=== PATIENT | male | born 1950 | race Hispanic/Latino ===

== ENCOUNTER 2017-07-13 01:20 | Inpatient (IN) | payer OTHER ==
[~2017-07-13] VITALS: Ht 162.6 cm; Wt 57.5 kg
[2017-07-13] MEDS ORDERED: DEXAMETHASONE SOD PHOSPHATE 4 MG/ML 1ML VIAL ONE (01:53)
[2017-07-13] MEDS ORDERED: METHYLPREDNISOLONE SOD SUCC 40MG/ML 1ML ONE (01:53)
[2017-07-13] MEDS ORDERED: ACETAMINOPHEN-CODEINE ELIXIR 5 ML UDCUP ONE (02:06)
[2017-07-13 02:09] LABS: BASOPHILS % (AUTO) 1.2 % (0.0-5.0); EOSINOPHILS % (AUTO) 3.6 % (0.0-8.0); HEMATOCRIT 31.4 % (42-54); LYMPHOCYTES % (AUTO) 16.3 % (21.0-51.0); MEAN CORPUSCULAR HEMOGLOBIN 32.6 pg (27.0-33.0); MONOCYTES % (AUTO) 5.5 % (3.0-13.0); NEUTROPHILS % (AUTO) 73.4 % (40.0-77.0); PLATELET COUNT (AUTO) 156 K/uL (130-400); RED BLOOD CELL COUNT(AUTO) 3.38 MIL/uL (4.50-6.20); RED CELL DISTRIBUTION WIDTH 13.8 % (11.0-15.5); WHITE BLOOD COUNT (AUTO) 7.5 K/uL (4.8-10.8)
[2017-07-13 02:17] LABS: CREATININE 7.1 mg/dL (0.5-1.5); POTASSIUM 4.4 mmol/L (3.5-5.1)
[2017-07-13 02:21] LABS: ALBUMIN 3.6 g/dL (3.5-5.0); BILIRUBIN,TOTAL 0.3 mg/dL (0.2-1.0); TOTAL PROTEIN, SERUM 7.9 g/dL (6.0-8.3)
[2017-07-13] MEDS ORDERED: LEVOFLOXACIN 500 MG/D5W 100 ML 100 ML ONE (03:34)
[2017-07-13 03:37] LABS: INR 0.93 (0.85-1.15); PARTIAL THROMBOPLASTIN TIME 27.4 SEC (26.3-35.5); PROTHROMBIN TIME 9.8 SEC (9.6-11.6)
[2017-07-13] MEDS ORDERED: MORPHINE SULFATE 2 MG/ML 1ML SYG IVP PRN (05:30)
[2017-07-13] MEDS ORDERED: ONDANSETRON HCL MDV 20ML 2 MG/ML VIAL IVP PRN (05:30)
[2017-07-13] MEDS ORDERED: ACETAMINOPHEN 325 MG TAB PO PRN (05:30)
[2017-07-13] MEDS ORDERED: GLUCAGON 1MG KIT 1 MG ML IM PRN (05:30)
[2017-07-13] MEDS ORDERED: DEXTROSE 50%-WATER 50 ML DISP.SYRIN IV PRN (05:30)
[2017-07-13] MEDS ORDERED: METHYLPREDNISOLONE SOD SUCC 40MG/ML 1ML IVP SCH (05:45)
[2017-07-13] MEDS ORDERED: ACETAMINOPHEN-CODEINE ELIXIR 5 ML UDCUP PO PRN (05:45)
[2017-07-13] MEDS: HEPARIN SODIUM 5000UNIT/ML 1ML VIAL SQ SCH ×3 (06:00→21:21)
[2017-07-13] MEDS ORDERED: LEVOFLOXACIN 500 MG/D5W 100 ML 100 ML IV SCH (06:00)
[2017-07-13 06:23] VITALS: BP 148/83
[2017-07-13] MEDS: IPRATROPIUM/ALBUTEROL SULFATE 3 ML SOLUTION IH SCH ×5 (06:51→22:09)
[2017-07-13] MEDS ORDERED: SODIUM CHLORIDE 0.9% 10 ML VIAL IVP PRN (07:00)
[2017-07-13] MEDS: INSULIN R PO SS1 SQ SCH ×4 (07:30→21:20)
[2017-07-13 07:51] VITALS: BP 140/65
[2017-07-13] MEDS: FAMOTIDINE 20MG TAB 20 MG TAB PO SCH (09:02)
[2017-07-13] MEDS ORDERED: METO25TA6 PO ×2 (11:45)
[2017-07-13] MEDS ORDERED: AEC81 PO (11:45)
[2017-07-13] MEDS ORDERED: FURO40TA5 PO (11:45)
[2017-07-13] MEDS ORDERED: AMLO10TA2 PO (11:45)
[2017-07-13] MEDS ORDERED: CILO100T PO (11:45)
[2017-07-13] MEDS ORDERED: SIMV10TA6 PO (11:45)
[2017-07-13] MEDS ORDERED: GLIP5TAB11 PO (11:45)
[2017-07-13] MEDS ORDERED: FOLI1TAB85 PO (11:45)
[2017-07-13] MEDS ORDERED: ERGO500014 PO (11:45)
[2017-07-13 11:50] VITALS: BP 157/79
[2017-07-13] MEDS: METHYLPREDNISOLONE SOD SUCC 40MG/ML 1ML IVP SCH ×2 (11:52→17:12)
[2017-07-13] MEDS: FUROSEMIDE 10 MG/ML 4ML VIAL IV SCH (14:38)
[2017-07-13 16:07] VITALS: BP 142/71
[2017-07-13] MEDS: CILOSTAZOL 100 MG TAB PO SCH (17:10)
[2017-07-13 19:38] VITALS: BP 148/76
[2017-07-13] MEDS: ATORVASTATIN CALCIUM 10 MG TABLET PO SCH (20:10)
[2017-07-13] MEDS: METOPROLOL TARTRATE 25 MG TAB PO SCH (20:11)
[2017-07-13 23:53] VITALS: BP 149/81
[2017-07-14] VITALS (7 sets, daily range): BP systolic 136–156; BP diastolic 64–76
[2017-07-14] MEDS: METHYLPREDNISOLONE SOD SUCC 40MG/ML 1ML IVP SCH ×3 (00:20→12:00)
[2017-07-14] MEDS: FUROSEMIDE 10 MG/ML 4ML VIAL IV SCH ×2 (00:20→17:01)
[2017-07-14] MEDS: IPRATROPIUM/ALBUTEROL SULFATE 3 ML SOLUTION IH SCH ×6 (01:58→22:31)
[2017-07-14] MEDS ORDERED: LEVOFLOXACIN 750 MG/D5W 150 ML 150 ML IV SCH (03:30)
[2017-07-14 04:27] LABS: BASOPHILS % (AUTO) 0.1 % (0.0-5.0); HEMATOCRIT 29.9 % (42-54); LYMPHOCYTES % (AUTO) 5.9 % (21.0-51.0); MEAN CORPUSCULAR HEMOGLOBIN 32.3 pg (27.0-33.0); MEAN CORPUSCULAR VOLUME 92.4 fL (79-99); PLATELET COUNT (AUTO) 141 K/uL (130-400); RED BLOOD CELL COUNT(AUTO) 3.23 MIL/uL (4.50-6.20); RED CELL DISTRIBUTION WIDTH 13.6 % (11.0-15.5); WHITE BLOOD COUNT (AUTO) 8.9 K/uL (4.8-10.8)
[2017-07-14 04:34] LABS: CREATININE 7.6 mg/dL (0.5-1.5); POTASSIUM 4.4 mmol/L (3.5-5.1)
[2017-07-14] MEDS: HEPARIN SODIUM 5000UNIT/ML 1ML VIAL SQ SCH ×3 (06:09→20:41)
[2017-07-14] MEDS: INSULIN R PO SS1 SQ SCH ×4 (06:21→20:28)
[2017-07-14] MEDS: ERGOCALCIFEROL (VITAMIN D2) 50,000 UNIT CAPSULE PO SCH (07:27)
[2017-07-14] MEDS: CILOSTAZOL 100 MG TAB PO SCH ×2 (08:01→16:37)
[2017-07-14] MEDS ORDERED: FUROSEMIDE 40 MG TABLET PO SCH (09:00)
[2017-07-14] MEDS: GLIPIZIDE 5 MG TABLET PO SCH (09:27)
[2017-07-14] MEDS: FAMOTIDINE 20MG TAB 20 MG TAB PO SCH (09:27)
[2017-07-14] MEDS: VITAMIN B COMPLEX 1 CAPSULE PO SCH (09:27)
[2017-07-14] MEDS: AMLODIPINE BESYLATE 5 MG TAB PO SCH (09:27)
[2017-07-14] MEDS: ASPIRIN 81 MG EC TAB PO SCH (09:28)
[2017-07-14] MEDS: METOPROLOL TARTRATE 25 MG TAB PO SCH ×2 (09:28→20:28)
[2017-07-14] MEDS: ATORVASTATIN CALCIUM 10 MG TABLET PO SCH (20:28)
[2017-07-15] VITALS (16 sets, daily range): BP systolic 119–141; BP diastolic 63–74
[2017-07-15] MEDS: IPRATROPIUM/ALBUTEROL SULFATE 3 ML SOLUTION IH SCH ×6 (02:06→21:41)
[2017-07-15 04:06] LABS: HEMATOCRIT 25.7 % (42-54); MEAN CORPUSCULAR HGB CONC 33.4 g/dL (32.0-36.0); MEAN CORPUSCULAR VOLUME 92.8 fL (79-99); PLATELET COUNT (AUTO) 135 K/uL (130-400); RED BLOOD CELL COUNT(AUTO) 2.77 MIL/uL (4.50-6.20); RED CELL DISTRIBUTION WIDTH 14.1 % (11.0-15.5); WHITE BLOOD COUNT (AUTO) 14.8 K/uL (4.8-10.8)
[2017-07-15 04:13] LABS: INR 0.96 (0.85-1.15); PARTIAL THROMBOPLASTIN TIME 26.7 SEC (26.3-35.5); PROTHROMBIN TIME 10.1 SEC (9.6-11.6)
[2017-07-15 04:18] LABS: BAND NEUTROPHILS % (MANUAL) 8 % (0-2); LYMPHOCYTES % (MANUAL) 7 % (22-44); MAN.DIFF COMMENT-IMPRESSION MANUAL DIFFERENTIAL; MONOCYTES % (MANUAL) 1 % (2-9); PHOSPHORUS 6.1 mg/dL (2.5-4.9); PLATELET MORPHOLOGY COMMENT SLIGHTLY DECREASED; POTASSIUM 4.3 mmol/L (3.5-5.1); SEGMENTED NEUTROPHILS % 84 % (40-70)
[2017-07-15 04:32] LABS: CREATININE 8.6 mg/dL (0.5-1.5)
[2017-07-15] MEDS: INSULIN R PO SS1 SQ SCH ×4 (06:24→20:42)
[2017-07-15] MEDS: FUROSEMIDE 10 MG/ML 4ML VIAL IV SCH (06:25)
[2017-07-15] MEDS: CILOSTAZOL 100 MG TAB PO SCH ×2 (06:25→17:16)
[2017-07-15] MEDS: HEPARIN SODIUM 5000UNIT/ML 1ML VIAL SQ SCH ×3 (06:37→17:18)
[2017-07-15] MEDS: LEVOFLOXACIN 250 MG/D5W 50ML 50 ML IVPB SCH (09:05)
[2017-07-15] MEDS: ERGOCALCIFEROL (VITAMIN D2) 50,000 UNIT CAPSULE PO SCH (09:05)
[2017-07-15] MEDS: VITAMIN B COMPLEX 1 CAPSULE PO SCH (09:05)
[2017-07-15] MEDS: GLIPIZIDE 5 MG TABLET PO SCH (09:05)
[2017-07-15] MEDS: AMLODIPINE BESYLATE 5 MG TAB PO SCH (09:06)
[2017-07-15] MEDS: PREDNISONE 10 MG TABLET PO SCH (09:06)
[2017-07-15] MEDS: ASPIRIN 81 MG EC TAB PO SCH (09:06)
[2017-07-15] MEDS: METOPROLOL TARTRATE 25 MG TAB PO SCH ×2 (09:07→20:31)
[2017-07-15] MEDS: FAMOTIDINE 20MG TAB 20 MG TAB PO SCH (09:07)
[2017-07-15] MEDS ORDERED: LIDOCAINE HCL 1% MDV 50ML VIAL ONE (10:18)
[2017-07-15] MEDS ORDERED: SODIUM CHLORIDE 0.9% 1000ML 1,000 ML IV ONE (14:37)
[2017-07-15] MEDS: ATORVASTATIN CALCIUM 10 MG TABLET PO SCH (20:31)
[2017-07-16] MEDS: IPRATROPIUM/ALBUTEROL SULFATE 3 ML SOLUTION IH SCH ×6 (01:25→22:00)
[2017-07-16 03:41] VITALS: BP 147/57
[2017-07-16] MEDS: INSULIN R PO SS1 SQ SCH ×4 (05:50→20:36)
[2017-07-16] MEDS: HEPARIN SODIUM 5000UNIT/ML 1ML VIAL SQ SCH ×3 (05:50→20:16)
[2017-07-16] MEDS: CILOSTAZOL 100 MG TAB PO SCH ×2 (05:50→17:26)
[2017-07-16 08:07] VITALS: BP 138/75
[2017-07-16 09:22] LABS: TOTAL PROTEIN, SERUM 7.4 g/dL (6.0-8.3)
[2017-07-16 12:00] VITALS: BP 128/70
[2017-07-16] MEDS: VITAMIN B COMPLEX 1 CAPSULE PO SCH (12:26)
[2017-07-16] MEDS: FAMOTIDINE 20MG TAB 20 MG TAB PO SCH (12:27)
[2017-07-16] MEDS: PREDNISONE 10 MG TABLET PO SCH (12:27)
[2017-07-16] MEDS: METOPROLOL TARTRATE 25 MG TAB PO SCH ×2 (12:28→20:15)
[2017-07-16] MEDS: GLIPIZIDE 5 MG TABLET PO SCH (12:28)
[2017-07-16] MEDS: ASPIRIN 81 MG EC TAB PO SCH (12:28)
[2017-07-16] MEDS: LISINOPRIL 20 MG TABLET PO SCH (12:29)
[2017-07-16 17:49] VITALS: BP 114/56
[2017-07-16 19:32] VITALS: BP 115/62
[2017-07-16] MEDS: ATORVASTATIN CALCIUM 10 MG TABLET PO SCH (20:15)
[2017-07-16 23:35] VITALS: BP 103/53
[2017-07-17] MEDS: IPRATROPIUM/ALBUTEROL SULFATE 3 ML SOLUTION IH SCH ×6 (01:40→22:00)
[2017-07-17 04:01] VITALS: BP 115/57
[2017-07-17 04:31] LABS: HEMATOCRIT 23.6 % (42-54); MEAN CORPUSCULAR HEMOGLOBIN 31.6 pg (27.0-33.0); MEAN CORPUSCULAR HGB CONC 34.3 g/dL (32.0-36.0); MEAN CORPUSCULAR VOLUME 92.2 fL (79-99); PLATELET COUNT (AUTO) 126 K/uL (130-400); RED BLOOD CELL COUNT(AUTO) 2.55 MIL/uL (4.50-6.20); RED CELL DISTRIBUTION WIDTH 13.9 % (11.0-15.5); WHITE BLOOD COUNT (AUTO) 8.6 K/uL (4.8-10.8)
[2017-07-17 05:01] LABS: POTASSIUM 3.6 mmol/L (3.5-5.1)
[2017-07-17] MEDS: CILOSTAZOL 100 MG TAB PO SCH ×2 (05:27→17:13)
[2017-07-17] MEDS: HEPARIN SODIUM 5000UNIT/ML 1ML VIAL SQ SCH ×3 (05:28→21:20)
[2017-07-17] MEDS: INSULIN R PO SS1 SQ SCH ×4 (05:41→21:17)
[2017-07-17] MEDS: ASPIRIN 81 MG EC TAB PO SCH (07:33)
[2017-07-17] MEDS: GLIPIZIDE 5 MG TABLET PO SCH (07:33)
[2017-07-17] MEDS: METOPROLOL TARTRATE 25 MG TAB PO SCH (07:34)
[2017-07-17] MEDS: FAMOTIDINE 20MG TAB 20 MG TAB PO SCH (07:34)
[2017-07-17] MEDS: VITAMIN B COMPLEX 1 CAPSULE PO SCH (07:34)
[2017-07-17] MEDS: LISINOPRIL 20 MG TABLET PO SCH (07:34)
[2017-07-17] MEDS: LEVOFLOXACIN 250 MG/D5W 50ML 50 ML IVPB SCH (07:34)
[2017-07-17] MEDS: PREDNISONE 10 MG TABLET PO SCH (07:34)
[2017-07-17 07:45] VITALS: BP 125/66
[2017-07-17 11:30] VITALS: BP 127/69
[2017-07-17 11:31] LABS: HEMATOCRIT 27.5 % (42-54)
[2017-07-17 11:39] LABS: HEMOGLOBIN A1C 6.4 % (4.0-6.0)
[2017-07-17 11:42] LABS: CREATININE 6.4 mg/dL (0.5-1.5)
[2017-07-17 12:12] LABS: % IRON SATURATION 20.3 % (30-44)
[2017-07-17] MEDS ORDERED: SODIUM CHLORIDE 0.9% 1000ML 1,000 ML IV PRN (14:45)
[2017-07-17] MEDS ORDERED: 0.9% SODIUM CHLORIDE 250 ML IV BAG IV PRN (14:45)
[2017-07-17] MEDS ORDERED: HEPARIN SODIUM 5000UNIT/ML 1ML VIAL IJ PRN (14:45)
[2017-07-17 16:30] VITALS: BP 138/71
[2017-07-17 19:19] VITALS: BP 141/79
[2017-07-17] MEDS: METOPROLOL TARTRATE 50 MG TAB PO SCH (20:42)
[2017-07-17] MEDS: ATORVASTATIN CALCIUM 10 MG TABLET PO SCH (20:42)
[2017-07-17 23:01] VITALS: BP 128/70
[2017-07-18] MEDS: IPRATROPIUM/ALBUTEROL SULFATE 3 ML SOLUTION IH SCH (02:00)
[2017-07-18 03:24] VITALS: BP 131/73
[2017-07-18 04:55] LABS: CREATININE 4.6 mg/dL (0.5-1.5); POTASSIUM 3.6 mmol/L (3.5-5.1)
[2017-07-18] MEDS: HEPARIN SODIUM 5000UNIT/ML 1ML VIAL SQ SCH ×3 (05:50→21:48)
[2017-07-18] MEDS ORDERED: IPRATROPIUM/ALBUTEROL SULFATE 3 ML SOLUTION IH PRN (06:00)
[2017-07-18] MEDS: INSULIN R PO SS1 SQ SCH ×4 (06:25→21:48)
[2017-07-18] MEDS: CILOSTAZOL 100 MG TAB PO SCH ×2 (06:27→16:01)
[2017-07-18 07:30] VITALS: BP 152/84
[2017-07-18 08:19] LABS: HEPATITIS Bs ANTIGEN SCREEN P Negative (Negative)
[2017-07-18] MEDS: VITAMIN B COMPLEX 1 CAPSULE PO SCH (09:21)
[2017-07-18] MEDS: PREDNISONE 10 MG TABLET PO SCH (09:21)
[2017-07-18] MEDS: GLIPIZIDE 5 MG TABLET PO SCH (09:21)
[2017-07-18] MEDS: FAMOTIDINE 20MG TAB 20 MG TAB PO SCH (09:22)
[2017-07-18] MEDS: METOPROLOL TARTRATE 50 MG TAB PO SCH ×2 (09:22→20:44)
[2017-07-18] MEDS: LISINOPRIL 20 MG TABLET PO SCH (09:22)
[2017-07-18] MEDS: ASPIRIN 81 MG EC TAB PO SCH (09:22)
[2017-07-18 12:00] VITALS: BP 124/68
[2017-07-18 16:30] VITALS: BP 138/81
[2017-07-18 19:13] VITALS: BP 145/80
[2017-07-18] MEDS: ATORVASTATIN CALCIUM 10 MG TABLET PO SCH (20:44)
[2017-07-18] MEDS: INSULIN GLARGINE 100 UNITS/ML 10 ML VIAL SQ SCH (21:47)
[2017-07-18 23:23] VITALS: BP 128/78
[2017-07-19] VITALS (15 sets, daily range): BP systolic 135–159; BP diastolic 70–86
[2017-07-19] MEDS: IPRATROPIUM/ALBUTEROL SULFATE 3 ML SOLUTION IH SCH ×3 (02:00→10:00)
[2017-07-19 04:34] LABS: HEMATOCRIT 25.8 % (42-54); MEAN CORPUSCULAR HEMOGLOBIN 31.3 pg (27.0-33.0); MEAN CORPUSCULAR HGB CONC 33.8 g/dL (32.0-36.0); MEAN CORPUSCULAR VOLUME 92.7 fL (79-99); PLATELET COUNT (AUTO) 176 K/uL (130-400); RED BLOOD CELL COUNT(AUTO) 2.78 MIL/uL (4.50-6.20); RED CELL DISTRIBUTION WIDTH 13.5 % (11.0-15.5); WHITE BLOOD COUNT (AUTO) 9.7 K/uL (4.8-10.8)
[2017-07-19 04:49] LABS: CREATININE 5.6 mg/dL (0.5-1.5); POTASSIUM 3.7 mmol/L (3.5-5.1)
[2017-07-19 04:51] LABS: INR 0.93 (0.85-1.15); PARTIAL THROMBOPLASTIN TIME 24.4 SEC (26.3-35.5); PROTHROMBIN TIME 9.6 SEC (9.6-11.6)
[2017-07-19] MEDS: HEPARIN SODIUM 5000UNIT/ML 1ML VIAL SQ SCH ×3 (05:02→22:00)
[2017-07-19] MEDS: CILOSTAZOL 100 MG TAB PO SCH ×2 (05:02→16:59)
[2017-07-19] MEDS: INSULIN R PO SS1 SQ SCH ×4 (06:02→21:02)
[2017-07-19] MEDS: METOPROLOL TARTRATE 50 MG TAB PO SCH ×2 (09:00→21:00)
[2017-07-19] MEDS: ASPIRIN 81 MG EC TAB PO SCH (09:00)
[2017-07-19] MEDS: VITAMIN B COMPLEX 1 CAPSULE PO SCH (09:00)
[2017-07-19] MEDS: PREDNISONE 10 MG TABLET PO SCH (09:00)
[2017-07-19] MEDS: LISINOPRIL 20 MG TABLET PO SCH ×2 (09:00→17:01)
[2017-07-19] MEDS: GLIPIZIDE 5 MG TABLET PO SCH (09:00)
[2017-07-19] MEDS: FAMOTIDINE 20MG TAB 20 MG TAB PO SCH (09:48)
[2017-07-19] MEDS: LEVOFLOXACIN 250 MG/D5W 50ML 50 ML IVPB SCH (09:49)
[2017-07-19] MEDS ORDERED: MIDAZOLAM HCL 1 MG/ML 2ML VIAL ONE (11:20)
[2017-07-19] MEDS ORDERED: FENTANYL CITRATE PF 50 MCG/1 ML 2ML VIAL ONE (11:21)
[2017-07-19] MEDS ORDERED: PAPAVERINE HCL 30 MG/ML 2ML VIAL ONE (11:25)
[2017-07-19] MEDS ORDERED: NEOMY SULF/POLYMYXIN B SULFATE 1 ML AMPUL IR ONE (11:25)
[2017-07-19] MEDS ORDERED: PROPOFOL 10 MG/ML 20ML VIAL IV ONE (11:47)
[2017-07-19] MEDS: ATORVASTATIN CALCIUM 10 MG TABLET PO SCH (21:01)
[2017-07-19] MEDS: INSULIN GLARGINE 100 UNITS/ML 10 ML VIAL SQ SCH (21:04)
[2017-07-20 03:41] VITALS: BP 149/76
[2017-07-20 05:03] LABS: HEMATOCRIT 25.5 % (42-54); MEAN CORPUSCULAR HGB CONC 36.5 g/dL (32.0-36.0); MEAN CORPUSCULAR VOLUME 93.1 fL (79-99); PLATELET COUNT (AUTO) 178 K/uL (130-400); RED BLOOD CELL COUNT(AUTO) 2.74 MIL/uL (4.50-6.20); RED CELL DISTRIBUTION WIDTH 13.6 % (11.0-15.5); WHITE BLOOD COUNT (AUTO) 8.7 K/uL (4.8-10.8)
[2017-07-20 05:05] LABS: CREATININE 6.2 mg/dL (0.5-1.5); POTASSIUM 3.8 mmol/L (3.5-5.1)
[2017-07-20] MEDS: CILOSTAZOL 100 MG TAB PO SCH ×2 (05:57→17:11)
[2017-07-20] MEDS: HEPARIN SODIUM 5000UNIT/ML 1ML VIAL SQ SCH ×2 (05:57→14:00)
[2017-07-20] MEDS: INSULIN R PO SS1 SQ SCH ×3 (06:02→16:30)
[2017-07-20] MEDS ORDERED: HEPARIN SODIUM 5000UNIT/ML 1ML VIAL IJ PRN (07:30)
[2017-07-20] MEDS ORDERED: SODIUM CHLORIDE 0.9% 1000ML 1,000 ML IV PRN (07:30)
[2017-07-20] MEDS ORDERED: 0.9% SODIUM CHLORIDE 250 ML IV BAG IV PRN (07:30)
[2017-07-20] MEDS ORDERED: ALBUMIN (HUMAN) 25% 100 ML IV PRN (07:30)
[2017-07-20 07:34] VITALS: BP 108/64
[2017-07-20] MEDS: VITAMIN B COMPLEX 1 CAPSULE PO SCH ×2 (09:00→12:06)
[2017-07-20] MEDS: PREDNISONE 10 MG TABLET PO SCH ×2 (09:00→12:06)
[2017-07-20] MEDS: METOPROLOL TARTRATE 50 MG TAB PO SCH ×2 (09:00→12:06)
[2017-07-20] MEDS: ASPIRIN 81 MG EC TAB PO SCH ×2 (09:00→12:06)
[2017-07-20] MEDS: GLIPIZIDE 5 MG TABLET PO SCH ×2 (09:00→12:06)
[2017-07-20] MEDS: LISINOPRIL 20 MG TABLET PO SCH ×2 (09:00→12:06)
[2017-07-20] MEDS: FAMOTIDINE 20MG TAB 20 MG TAB PO SCH ×2 (09:00→12:06)
[2017-07-20 11:50] VITALS: BP 145/66
[2017-07-20] MEDS ORDERED: INSLAN SQ (15:57)
[2017-07-20] MEDS ORDERED: LISI-613 PO (15:57)
[2017-07-20] MEDS ORDERED: METO50 PO (15:57)
[2017-07-20] MEDS ORDERED: LEVO250T2 PO (15:57)
== END 2017-07-20 17:25 | disposition home or self-care (01) | DRG 264 ==
LOC: EDH 01:20 → EDHIP 04:51 → OBSVTOIN 04:51 → 2DH 05:56
PROVIDERS: ADMIT Internal Medicine Nephrology; ATTEND Internal Medicine Nephrology
PROC: 5A1D70Z Performance of Urinary Filtration, Intermittent, Less than 6 Hours Per Day (ICD-10-PCS; principal; 2017-07-16)
PROC: 5A1D70Z Performance of Urinary Filtration, Intermittent, Less than 6 Hours Per Day (ICD-10-PCS; 2017-07-16)
PROC: 5A1D70Z Performance of Urinary Filtration, Intermittent, Less than 6 Hours Per Day (ICD-10-PCS; 2017-07-17)
PROC: 0JH63XZ Insertion of Tunneled Vascular Access Device into Chest Subcutaneous Tissue and Fascia, Percutaneous Approach (ICD-10-PCS; 2017-07-17)
PROC: 02H633Z Insertion of Infusion Device into Right Atrium, Percutaneous Approach (ICD-10-PCS; 2017-07-17)
PROC: B244ZZZ Ultrasonography of Right Heart (ICD-10-PCS; 2017-07-17)
PROC: 5A1D70Z Performance of Urinary Filtration, Intermittent, Less than 6 Hours Per Day (ICD-10-PCS; 2017-07-19)
PROC: 031C0ZF Bypass Left Radial Artery to Lower Arm Vein, Open Approach (ICD-10-PCS; 2017-07-19 11:30)
DX: I13.2 Hypertensive heart and chronic kidney disease with heart failure and with stage 5 chronic kidney disease, or end stage renal disease (principal); J96.01 Acute respiratory failure with hypoxia; N17.9 Acute kidney failure, unspecified; J18.9 Pneumonia, unspecified organism; N18.6 End stage renal disease; E11.22 Type 2 diabetes mellitus with diabetic chronic kidney disease; I50.33 Acute on chronic diastolic (congestive) heart failure; E11.65 Type 2 diabetes mellitus with hyperglycemia; D64.9 Anemia, unspecified; J45.909 Unspecified asthma, uncomplicated; Z82.49 Family history of ischemic heart disease and other diseases of the circulatory system; Z83.3 Family history of diabetes mellitus; Z91.19 Patient's noncompliance with other medical treatment and regimen; Z99.2 Dependence on renal dialysis; Z98.42 Cataract extraction status, left eye
CPT/HCPCS: 36415; 36558; 71045; 71046; 71250; 76604; 76770; 77001; 80048; 80053; 80061; 80339; 82040; 82565; 82728; 82948; 83036; 83540; 83550; 83605; 83615; 84100; 84155; 84484; 84520; 85014; 85018; 85025; 85027; 85610; 85730; 86701; 86704; 86706; 87340; 87390; 87520; 87804; 90935; 93005; 93306; 93971; 94640; 94664; C1750; J1100; J1644; J1815; J1940; J1956; J2250; J2440; J2704; J2920; J3010; J3490; J7030; J7070; J7512

== ENCOUNTER 2017-08-17 17:46 | Emergency (ER) | payer OTHER ==
[~2017-08-17 17:46] MED LIST: AEC81 PO; AMLO10TA2 PO; CILO100T PO; ERGO500014 PO; FOLI1TAB85 PO; GLIP5TAB11 PO; INSLAN SQ; LEVO250T2 PO; LISI-613 PO; METO50 PO; SIMV10TA6 PO
== END 2017-08-17 19:47 | disposition home or self-care (01) ==
LOC: EDH 17:46
DX: S51.812A Laceration without foreign body of left forearm, initial encounter (principal); E11.9 Type 2 diabetes mellitus without complications; X58.XXXA Exposure to other specified factors, initial encounter; Y93.89 Activity, other specified; Y92.89 Other specified places as the place of occurrence of the external cause; Y99.8 Other external cause status
CPT/HCPCS: 99282

== ENCOUNTER → 2018-06-02 | Outpatient (CLI) | payer OTHER ==
[~2018-06-02] MED LIST changes: -AMLO10TA2 PO; +AMLO10TA7 PO
== END | disposition home or self-care (01) ==
LOC: RAH 09:16
PROVIDERS: ATTEND Internal Medicine
DX: I70.0 Atherosclerosis of aorta (principal); Z87.891 Personal history of nicotine dependence
CPT/HCPCS: 76775

== ENCOUNTER → 2018-07-18 | Outpatient (CLI) | payer OTHER, SELFPAY | END | disposition home or self-care (01) | LOC: OIH 10:33 | PROVIDERS: ATTEND Internal Medicine Cardiovascular Disease | DX: Z13.6 Encounter for screening for cardiovascular disorders (principal) | CPT/HCPCS: 75571 ==

== ENCOUNTER 2018-10-27 05:42 | Inpatient (IN) | payer OTHER ==
[2018-10-24 11:45] VITALS: BP 154/53
[2018-10-24 12:01] LABS: BASOPHILS % (AUTO) 0.8 % (0.0-5.0); EOSINOPHILS % (AUTO) 3.2 % (0.0-8.0); HEMATOCRIT 35.4 % (42-54); LYMPHOCYTES % (AUTO) 25.1 % (21.0-51.0); MEAN CORPUSCULAR HEMOGLOBIN 33.5 pg (27.0-33.0); MEAN CORPUSCULAR HGB CONC 33.2 g/dL (32.0-36.0); MEAN CORPUSCULAR VOLUME 100.8 fL (79-99); NEUTROPHILS % (AUTO) 63.9 % (40.0-77.0); PLATELET COUNT (AUTO) 110 K/uL (130-400); RED BLOOD CELL COUNT(AUTO) 3.51 MIL/uL (4.50-6.20); RED CELL DISTRIBUTION WIDTH 15.2 % (11.0-15.5); WHITE BLOOD COUNT (AUTO) 5.3 K/uL (4.8-10.8)
[2018-10-24 12:14] LABS: APPEARANCE,URINE Clear (CLEAR); BILIRUBIN,URINE Small (NEGATIVE); COLOR,URINE Dark Yellow (YELLOW); GLUCOSE, URINE (UA) Negative (NEGATIVE); KETONES,URINE Trace mg/dL (NEGATIVE); LEUKOCYTE ESTERASE ,URINE Trace (NEGATIVE); NITRATE,URINE Negative (NEGATIVE); OCCULT BLOOD,URINE Negative (NEGATIVE); PH,URINE 7.5 (5.0-8.0); PROTEIN,URINE 300 mg/dL (NEGATIVE)
[2018-10-24 12:16] LABS: CREATININE 4.5 mg/dL (0.5-1.5); POTASSIUM 4.6 mmol/L (3.5-5.1)
[2018-10-24 12:19] LABS: INR 0.97 (0.85-1.15); PROTHROMBIN TIME 10.2 SEC (9.6-11.6)
[2018-10-24 12:23] LABS: BACTERIA,URINE Rare /HPF (None Seen); HYALINE CASTS, URINE 0-1 /LPF (0-1 /LPF); MUCUS,URINE Few LPF (None Seen); RBC,URINE None Seen /HPF (0-1); SQUAMOUS EPITHELIAL CELL,UR Rare /HPF (0-2); WBC,URINE 0-1 /HPF (0-1)
--- NOTE | 2018-10-24 16:21 | NUR ---
LABS INFORMED NIKA DENNIS OF ABNORMAL PLATELET LEVEL. NO ORDERS RECEIVED. PROCEED WITH PLANNED PROCEDURE
[~2018-10-27] VITALS: Ht 160 cm; Wt 53.9 kg
[2018-10-27] VITALS (38 sets, daily range): BP systolic 98–177; BP diastolic 54–83
[~2018-10-27 05:42] MED LIST changes: -AEC81 PO; -AMLO10TA7 PO; -CILO100T PO; -ERGO500014 PO; +FOLIC ACID PO; -GLIP5TAB11 PO; -LEVO250T2 PO; -LISI-613 PO; +LISI10TA7 PO; -METO50 PO; +OMEP-50 PO
[2018-10-27] MEDS ORDERED: SODIUM CHLORIDE 0.9% 1000ML 1,000 ML IV ONE ×2 (06:42→12:31)
--- NOTE | 2018-10-27 07:13 | NUR ---
PROCEDURE PT TAKEN TO HEAD PUMPER FOR PROCEDURE . FAMILY AT BEDSIDE.
[2018-10-27] MEDS ORDERED: NITROGLYCERIN 5 MG/ML 10 ML VIAL IV ONE (07:18)
[2018-10-27] MEDS ORDERED: SODIUM BICARB 50MEQ 50ML VIAL ONE ×2 (07:18→13:27)
[2018-10-27] MEDS ORDERED: LIDOCAINE HCL 2% 20ML ONE (07:18)
[2018-10-27] MEDS ORDERED: HEPARIN SODIUM 1000UNIT/ML 10ML VIAL ONE ×2 (07:18→13:27)
[2018-10-27] MEDS ORDERED: IOHEXOL-350 50ML VIAL IV ONE (07:18)
[2018-10-27] MEDS ORDERED: IOHEXOL 350 MG/ML 100ML INFUS..BTL IV ONE (07:18)
[2018-10-27] MEDS ORDERED: CALC667C10 PO (07:24)
[2018-10-27] MEDS ORDERED: MIDAZOLAM HCL 1 MG/ML 2ML VIAL ONE (07:26)
[2018-10-27] MEDS ORDERED: MEPERIDINE-PF 25 MG/ML SYG ONE (07:26)
[2018-10-27] MEDS ORDERED: DEXTROSE 50%-WATER 50 ML DISP.SYRIN IV PRN (08:15)
[2018-10-27] MEDS ORDERED: GLUCAGON 1MG KIT 1 MG ML IM PRN ×2 (08:15→15:30)
[2018-10-27] MEDS: FOLIC ACID/VITAMIN B COMP W-C 1 MG CAP/TAB PO SCH (09:00)
[2018-10-27] MEDS: LISINOPRIL 10 MG TABLET PO SCH (09:00)
[2018-10-27] MEDS: FOLIC ACID 1 MG TABLET PO SCH (09:00)
[2018-10-27] MEDS: PANTOPRAZOLE SODIUM 40 MG TABLET.DR PO SCH (09:00)
[2018-10-27 09:36] LABS: HEMATOCRIT 33.9 % (42-54); MEAN CORPUSCULAR HEMOGLOBIN 34.3 pg (27.0-33.0); MEAN CORPUSCULAR HGB CONC 33.8 g/dL (32.0-36.0); MEAN CORPUSCULAR VOLUME 101.2 fL (79-99); PLATELET COUNT (AUTO) 77 K/uL (130-400); RED BLOOD CELL COUNT(AUTO) 3.35 MIL/uL (4.50-6.20); RED CELL DISTRIBUTION WIDTH 14.6 % (11.0-15.5); WHITE BLOOD COUNT (AUTO) 5.3 K/uL (4.8-10.8)
[2018-10-27 09:48] LABS: INR 0.95 (0.85-1.15); PARTIAL THROMBOPLASTIN TIME 28.5 SEC (26.3-35.5)
[2018-10-27 09:51] LABS: CREATININE 5.6 mg/dL (0.5-1.5); POTASSIUM 4.5 mmol/L (3.5-5.1)
[2018-10-27 10:05] LABS: HEMOGLOBIN A1C 6.6 % (4.0-6.0)
[2018-10-27 10:29] LABS: B-TYPE NATRIURETIC PEPTIDE 123 pg/mL (0-100)
[2018-10-27] MEDS ORDERED: CEFAZOLIN SODIUM 1 GM VIAL IVP PRN (11:00)
[2018-10-27] MEDS ORDERED: INSULIN HUMULIN R 100 UNIT/ML 3ML SQ SCH (11:30)
--- NOTE | 2018-10-27 11:45 | NUR ---
DR. ANN IN TO SEE PATIENT AND SPEAK WITH HIM ABOUT HEART CATH RESULTS AND PLANNED CABG.
[2018-10-27] MEDS: CALCIUM ACETATE 667 MG CAPSULE PO SCH ×2 (12:00→17:00)
--- NOTE | 2018-10-27 12:19 | NUR ---
PATIENT TAKEN TO OR HOLDING FOR PROCEDURE.
[2018-10-27] MEDS ORDERED: EPINEPHRINE 1 MG/ML 30ML VIAL IJ ONE (12:27)
[2018-10-27] MEDS ORDERED: NITROGLYCERIN 50 MG/D5% WATER 1 BOT ONE (12:27)
[2018-10-27] MEDS ORDERED: AMINOCAPROIC ACID 250 MG/ML 20 ML VIAL IV ONE (13:27)
[2018-10-27] MEDS ORDERED: NOREPINEPHRINE BITARTRATE 1 MG/1 ML ML IV ONE (13:27)
[2018-10-27] MEDS ORDERED: EPINEPHRINE 1 MG/ML AMPULE ONE (13:27)
[2018-10-27] MEDS ORDERED: LIDOCAINE PF 2% 5ML ABBOJECT ONE (13:27)
[2018-10-27] MEDS ORDERED: ESMOLOL HCL 10 MG/ML 10 ML VIAL ONE (13:27)
[2018-10-27] MEDS ORDERED: PROTAMINE SULFATE 10 MG/ML 25ML VIAL IV ONE (13:27)
[2018-10-27] MEDS ORDERED: FENTANYL CITRATE PF 50 MCG/1 ML 20ML VIAL IJ ONE (13:28)
[2018-10-27] MEDS ORDERED: ROCURONIUM 10MG/1ML SYR 10 MG/ML ML ONE (13:28)
[2018-10-27] MEDS ORDERED: MIDAZOLAM HCL 1 MG/ML 5ML VIAL ONE (13:28)
[2018-10-27] MEDS ORDERED: AMIODARONE HCL 50 MG/ML 3 ML VIAL ONE ×2 (13:28→15:33)
[2018-10-27] MEDS ORDERED: PROPOFOL 10 MG/ML 20ML VIAL IV ONE (13:28)
[2018-10-27] MEDS ORDERED: ETOMIDATE 2 MG/ML 10 ML VIAL ONE (13:29)
--- NOTE | 2018-10-27 14:03 | NUR ---
PT RECEIVED FROM MASTER AUTOMOTIVE TECHNICIAN, POST HEART CATH. PT IS TO BE SEEN BY DR. ANN FOR POSSIBLE CABG TODAY. BED REST x 4 HRS. RIGHT GROIN NOTED SOFT, NO HEMATOMA, PULSES PALPATED. POC DISCUSSED WITH PT AND SPOUSE. TELE WITH SB 57. WILL CONT TO MONITOR CLOSELY. Addendum: 10/27/18 at 1410 by JENNA ROMERO RN RN TIME ADJUSTMENT FOR NOTE 5599
[2018-10-27 14:09] LABS: ABG BASE EXCESS -3.2 mmol/L (-2.0-3.0); ABG HCO3 17.8 mmol/L (21.0-28.0); ABG PCO2 22 mmHg (35-48)
[2018-10-27] MEDS ORDERED: MAGNESIUM SULFATE 1 GM/2 ML VIAL ONE (14:19)
[2018-10-27] MEDS ORDERED: BACITRACIN 50,000 UNIT VIAL ONE (14:24)
[2018-10-27] MEDS ORDERED: PAPAVERINE HCL 30 MG/ML 2ML VIAL ONE (14:24)
[2018-10-27] MEDS ORDERED: HEPARIN SODIUM 1000UNIT/ML 10ML VIAL IV ONE (14:47)
[2018-10-27] MEDS ORDERED: ALBUMIN (HUMAN) 25% 50 ML IV ONE (14:47)
[2018-10-27 15:10] LABS: ABG BASE EXCESS 0.4 mmol/L (-2.0-3.0); ABG HCO3 23.6 mmol/L (21.0-28.0); ABG OXYGEN SATURATION 99.2 % (95.0-99.0); ABG PCO2 33 mmHg (35-48)
[2018-10-27] MEDS ORDERED: SODIUM CHLORIDE 0.9% 500ML 500 ML IV SCH (15:19)
[2018-10-27] MEDS ORDERED: SODIUM CHLORIDE 0.9% 10 ML VIAL IVP PRN (15:30)
[2018-10-27] MEDS ORDERED: POTASSIUM CHLORIDE 20MEQ/100ML 100 ML IV PRN (15:30)
[2018-10-27] MEDS ORDERED: ACETAMINOPHEN 650 MG SUPPOSITORY RC PRN (15:30)
[2018-10-27] MEDS ORDERED: SODIUM CHLORIDE 0.9% 250 ML IV PRN (15:30)
[2018-10-27] MEDS ORDERED: TRAMADOL HCL 50 MG TABLET PO PRN ×2 (15:30)
[2018-10-27] MEDS ORDERED: POTASSIUM PHOS 15 mMOL+NS250ML 250 ML IV PRN (15:30)
[2018-10-27] MEDS ORDERED: MORPHINE SULFATE 4 MG/1ML SYG IV PRN (15:30)
[2018-10-27] MEDS ORDERED: AMINOCAPROIC ACID 15,000 MG in SODIUM CHLORIDE 0.9% 250 ML IV SCH (15:30)
[2018-10-27] MEDS ORDERED: INSULIN REGULAR, HUMAN 3ML 100 UNIT in SODIUM CHLORIDE 0.9% 99 ML IV SCH ×2 (15:30)
[2018-10-27] MEDS ORDERED: ACETAMINOPHEN 325 MG TAB PO PRN ×2 (15:30)
[2018-10-27] MEDS ORDERED: CALCIUM GLUCONATE 1 GM in SODIUM CHLORIDE 0.9% 50 ML IV PRN (15:30)
[2018-10-27] MEDS ORDERED: EPINEPHRINE 8 MG in DEXTROSE 5%-WATER 250 ML IV PRN (15:30)
[2018-10-27] MEDS ORDERED: MAGNESIUM 2GM PREMIX 50ML 50 ML IV PRN (15:30)
[2018-10-27] MEDS ORDERED: NITROGLYCERIN 50 MG/D5% WATER 250 BOT IV SCH (15:30)
[2018-10-27] MEDS ORDERED: MORPHINE SULFATE 2 MG/ML 1ML SYG IV PRN (15:30)
[2018-10-27] MEDS ORDERED: SODIUM BICARB 50MEQ 50ML VIAL IV PRN (15:30)
[2018-10-27] MEDS ORDERED: ALBUMIN (HUMAN) 5% 250 ML IV PRN (15:30)
[2018-10-27] MEDS ORDERED: PROPOFOL 1000 MG/100 ML 100 ML IV PRN (15:30)
[2018-10-27] MEDS ORDERED: NOREPINEPHRINE 4MG/NS 250ML 250 ML IV PRN (15:30)
[2018-10-27] MEDS ORDERED: POTASSIUM CHLORIDE 20MEQ/100ML 300 ML IV ONE (15:53)
[2018-10-27 15:55] LABS: ABG BASE EXCESS 1.4 mmol/L (-2.0-3.0); ABG HCO3 24.3 mmol/L (21.0-28.0); ABG OXYGEN SATURATION 98.8 % (95.0-99.0); ABG PCO2 33 mmHg (35-48)
[2018-10-27 16:44] LABS: ABG BASE EXCESS -1.1 mmol/L (-2.0-3.0); ABG HCO3 22.6 mmol/L (21.0-28.0); ABG OXYGEN SATURATION 97.8 % (95.0-99.0); ABG PCO2 34 mmHg (35-48)
--- NOTE | 2018-10-27 17:15 | NUR ---
POST OP Received post op - orally intubated/sedated - not yet responsive to verbal or tactile stimulation. Sedation not infusing. SR on tele - VS/hemodynamics as recorded. Received pt on IV levophed @1mcg/min, epinephrine gtt @0.1mcg/kg/min, amicar @50ml/hr. Skin is cool, dry. Strong apical heart tones. Sternal drsg is clean, dry. CT's x3 in place - R/L pleural, MS - sanguineous drainage. CT's to 20cm suction. No evidence of air leak/crepitus. Abd flat - absent bowel sounds. OGT placement verified per routine - placed to LIS. F/C patent. CODY bandage/surgical drsg to LLE dry, intact. Left IJ CVP line in use. Right brachial arterial line in use. PIV to right forearm patent. Insulin gtt initiated per protocol. Assessment completed/recorded. Levophed gtt off @1719. Epinephrine gtt off @1728.
[2018-10-27 17:42] LABS: ABG BASE EXCESS -0.4 mmol/L (-2.0-3.0); ABG HCO3 24.1 mmol/L (21.0-28.0); ABG OXYGEN SATURATION 97.1 % (95.0-99.0); ABG PCO2 39 mmHg (35-48)
--- NOTE | 2018-10-27 17:50 | NUR ---
FAMILY UPDATE Pt's family members in to see pt - updated. Questions addressed. CVR phone number provided to pt's spouse.
[2018-10-27 17:51] LABS: HEMATOCRIT 28.2 % (42-54); MEAN CORPUSCULAR HEMOGLOBIN 34.3 pg (27.0-33.0); MEAN CORPUSCULAR HGB CONC 33.8 g/dL (32.0-36.0); MEAN CORPUSCULAR VOLUME 101.4 fL (79-99); PLATELET COUNT (AUTO) 62 K/uL (130-400); RED BLOOD CELL COUNT(AUTO) 2.78 MIL/uL (4.50-6.20); RED CELL DISTRIBUTION WIDTH 14.6 % (11.0-15.5)
[2018-10-27] MEDS: SODIUM CHLORIDE 0.9% 1000ML 1,000 ML IV SCH (17:58)
[2018-10-27 18:07] LABS: INR 1.05 (0.85-1.15); PARTIAL THROMBOPLASTIN TIME 23.5 SEC (26.3-35.5)
[2018-10-27 18:45] LABS: MAGNESIUM 2.7 mg/dL (1.80-2.40); PHOSPHORUS 3.8 mg/dL (2.5-4.9); POTASSIUM 4.4 mmol/L (3.5-5.1)
--- NOTE | 2018-10-27 18:50 | NUR ---
SHIFT REPORT Care of pt endorsed to 7P RN.
--- NOTE | 2018-10-27 19:15 | NUR ---
PM note Orally intubated and sedated. Endotracheal cardiac output monitoring in place. Amicar @50ml/hr via Left internal jugular central line, all ports patent. Sternal dressings clean & dry. Chest tubes x3 to 20cm of suction, right & left pleural, mediastinal with sanguineous output with no air leak. Orogastric tube to low intermittent suction, minimal clear content noted. Nj catheter to gravity. Tito wrap bandage to left donor leg. Arterial line to right brachial leveled and zeroed. New 20gauge IV catheter started to right hand, 20 Gauge to right forearm patent. Insulin drip per protocol. No hematoma noted to left groin, pulses palpable. Sinus mechanism in 80s.
--- NOTE | 2018-10-27 19:23 | NUR ---
MD Notification Dr. Gutierrez notified about patient's Dialysis therapy due tomorrow as scheduled from home. Order received to contact scraper burrer for Dialysis orders, and not to extubate too late tonight, will carry out.
--- NOTE | 2018-10-27 19:35 | NUR ---
MD CALL Dr. Rei marrufo and called back. New orders received to obtain consent for Hemodialysis to be done tomorrow am, will carry out.
--- NOTE | 2018-10-27 19:41 | NUR ---
CONSENT Call made to Mrs. Divya Davis (spouse), telephone consent obtained for Hemodialysis and verified by JUNE Hebert at bedside.
--- NOTE | 2018-10-27 19:45 | NUR ---
DIALYSIS NURSE Call made to dialysis nurse Shawna as per extrusion supervisor schedule, notified about new orders for Hemodialysis in am, consent in chart.
[2018-10-27] MEDS ORDERED: ATORVASTATIN CALCIUM 40 MG TABLET PO SCH (21:00)
[2018-10-27] MEDS ORDERED: SIMVASTATIN 10 MG TABLET PO SCH (21:00)
[2018-10-27] MEDS: INSULIN GLARGINE 100 UNITS/ML 10 ML VIAL SQ SCH (21:00)
[2018-10-27] MEDS: SODIUM CHLORIDE 0.9% 10 ML VIAL IVP SCH ×2 (21:15→23:36)
[2018-10-27] MEDS: CEFAZOLIN SODIUM 1 GM VIAL IV SCH (21:16)
[2018-10-28] VITALS (62 sets, daily range): BP systolic 63–181; BP diastolic 33–76
--- NOTE | 2018-10-28 | NUR ---
STATUS Remains orally intubated, sedation infusing at low dose. Opens eyes and randomly moves all extremities, reassurance provided.
[2018-10-28] MEDS: ONDANSETRON HCL 4 MG/2 ML VIAL IV PRN ×2 (02:55→17:21)
[2018-10-28 03:43] LABS: ABG BASE EXCESS -2.3 mmol/L (-2.0-3.0); ABG HCO3 22.3 mmol/L (21.0-28.0); ABG OXYGEN SATURATION 99.2 % (95.0-99.0); ABG PCO2 38 mmHg (35-48)
[2018-10-28] MEDS: CEFAZOLIN SODIUM 1 GM VIAL IV SCH ×2 (03:49→11:33)
--- NOTE | 2018-10-28 03:50 | NUR ---
EXTUBATION Sedation turned off at 0300. Pt fully awake following commands. Able to sustain head-lift, strong bilateral hand manager lean. Moves all extremities. Blood gases done. Negative inspiratory force of -28cmHg with vital capacity 1,500cc. Extubated and placed on Aerosol mask at 40% Fio2, tolerating well. Instructed not to speak for next 2 hours, nods understanding.
[2018-10-28 04:05] LABS: HEMATOCRIT 28.7 % (42-54); MEAN CORPUSCULAR HEMOGLOBIN 33.9 pg (27.0-33.0); MEAN CORPUSCULAR HGB CONC 33.7 g/dL (32.0-36.0); MEAN CORPUSCULAR VOLUME 100.6 fL (79-99); PLATELET COUNT (AUTO) 77 K/uL (130-400); RED BLOOD CELL COUNT(AUTO) 2.85 MIL/uL (4.50-6.20); RED CELL DISTRIBUTION WIDTH 14.7 % (11.0-15.5); WHITE BLOOD COUNT (AUTO) 9.5 K/uL (4.8-10.8)
[2018-10-28 04:06] LABS: PARTIAL THROMBOPLASTIN TIME 24.7 SEC (26.3-35.5); PROTHROMBIN TIME 10.5 SEC (9.6-11.6)
[2018-10-28 04:18] LABS: CREATININE 5.9 mg/dL (0.5-1.5); MAGNESIUM 2.5 mg/dL (1.80-2.40); POTASSIUM 4.1 mmol/L (3.5-5.1)
--- NOTE | 2018-10-28 05:00 | NUR ---
TRANSFER Transferred to room 206, in no distress. Aerosol mask removed and placed on nasal cannula at 2lit/min. Side rails up. Remains in bed awaiting dialysis treatment.
[2018-10-28 05:30] LABS: ABG BASE EXCESS 0.6 mmol/L (-2.0-3.0); ABG HCO3 25.3 mmol/L (21.0-28.0); ABG OXYGEN SATURATION 99.3 % (95.0-99.0); ABG PCO2 41 mmHg (35-48)
[2018-10-28] MEDS: DEXTROSE 50%-WATER 50 ML DISP.SYRIN IV PRN (07:35)
[2018-10-28] MEDS: CALCIUM ACETATE 667 MG CAPSULE PO SCH ×2 (08:00→11:20)
--- NOTE | 2018-10-28 08:05 | NUR ---
DIALYSIS IN PROGRESS- I HAVE STARTED EPI DRIP AT 0.02 MCG/KG/MIN TO SUPPORT BP WHILE HAVING HD.
[2018-10-28] MEDS: SODIUM CHLORIDE 0.9% 10 ML VIAL IVP SCH ×2 (08:15→15:41)
--- NOTE | 2018-10-28 08:49 | NUR ---
LEVOPHED STARTED AT 2MCG/MIN TO SUPPORT BP DURING HD. ABP WAS 70/50
[2018-10-28] MEDS: LISINOPRIL 10 MG TABLET PO SCH (09:00)
[2018-10-28] MEDS: FAMOTIDINE/PF 20 MG/2 ML VIAL IV SCH (09:00)
[2018-10-28] MEDS: METOPROLOL TARTRATE 25 MG TAB PO SCH ×2 (09:00→21:00)
[2018-10-28 09:08] LABS: % IRON SATURATION 10.7 % (30-44)
[2018-10-28] MEDS: FOLIC ACID 1 MG TABLET PO SCH (11:20)
[2018-10-28] MEDS: PANTOPRAZOLE SODIUM 40 MG TABLET.DR PO SCH (11:21)
[2018-10-28] MEDS: ASPIRIN 325MG EC TAB 325 MG TABLET.DR PO SCH (11:21)
[2018-10-28] MEDS: FOLIC ACID/VITAMIN B COMP W-C 1 MG CAP/TAB PO SCH (11:22)
--- NOTE | 2018-10-28 11:30 | NUR ---
PT HAS COMPLETED HIS DIALYSIS. ON LEVOPHED AND EPI DRIPS. OTHERWISE STABLE
[2018-10-28] MEDS: SODIUM CHLORIDE 0.9% 1000ML 1,000 ML IV SCH (11:34)
--- NOTE | 2018-10-28 14:43 | NUR ---
LOW BP- PT REPORTS TO ME THAT HE HAS HAD PROBLEMS WITH LOW BP AND HAS HAD TO STOP TAKING BLOOD PRESSURE MEDS. AT PRESENT TIME PT IS COMFORTABLE AND STABLE. LEVOPHED REMAINS ON AT 1MCG/MIN. EPI IS OFF. HAD 1 SMALL LOOSE BROWN BM.
--- NOTE | 2018-10-28 19:27 | NUR ---
HAND OF REPORT GIVEN TO ESTHER WATKINS
[2018-10-28] MEDS: ATORVASTATIN CALCIUM 20 MG TABLET PO SCH (21:30)
[2018-10-28] MEDS: INSULIN GLARGINE 100 UNITS/ML 10 ML VIAL SQ SCH (21:35)
[2018-10-29] VITALS (20 sets, daily range): BP systolic 93–144; BP diastolic 45–78
[2018-10-29] MEDS: SODIUM CHLORIDE 0.9% 10 ML VIAL IVP SCH ×3 (00:49→16:15)
[2018-10-29 05:28] LABS: MEAN CORPUSCULAR HEMOGLOBIN 34.3 pg (27.0-33.0); MEAN CORPUSCULAR HGB CONC 33.9 g/dL (32.0-36.0); MEAN CORPUSCULAR VOLUME 101.1 fL (79-99); PLATELET COUNT (AUTO) 62 K/uL (130-400); RED BLOOD CELL COUNT(AUTO) 2.67 MIL/uL (4.50-6.20); RED CELL DISTRIBUTION WIDTH 14.9 % (11.0-15.5); WHITE BLOOD COUNT (AUTO) 11.6 K/uL (4.8-10.8)
[2018-10-29 05:36] LABS: CREATININE 4.9 mg/dL (0.5-1.5); MAGNESIUM 2.1 mg/dL (1.80-2.40); PHOSPHORUS 2.8 mg/dL (2.5-4.9); POTASSIUM 5.1 mmol/L (3.5-5.1)
[2018-10-29 08:11] LABS: HEPATITIS A ANTIBODY IGM Negative (Negative); HEPATITIS B CORE IGM Negative (Negative); HEPATITIS Bs ANTIGEN SCREEN P Negative (Negative)
[2018-10-29] MEDS: PANTOPRAZOLE SODIUM 40 MG TABLET.DR PO SCH (08:41)
[2018-10-29] MEDS: FOLIC ACID/VITAMIN B COMP W-C 1 MG CAP/TAB PO SCH (08:43)
[2018-10-29] MEDS: LISINOPRIL 10 MG TABLET PO SCH (08:44)
[2018-10-29] MEDS: ASPIRIN 325MG EC TAB 325 MG TABLET.DR PO SCH (08:44)
[2018-10-29] MEDS: FAMOTIDINE/PF 20 MG/2 ML VIAL IV SCH (08:44)
[2018-10-29] MEDS: FOLIC ACID 1 MG TABLET PO SCH (08:44)
--- NOTE | 2018-10-29 08:45 | NUR ---
DC PLAN VISITED WITH PATIENT. PATIENT LIVES WITH SPOUSE. INDEPENDENT ABLE TO PERFORM ADL'S. PATIENT HAS NO SERVICES OR DME'S. FEELS SAFE TO RETURN HOME. Addendum: 10/29/18 at 0851 by ADIS DICKINSON RN CM Amended: Links added.
[2018-10-29] MEDS ORDERED: FAMOTIDINE 20MG TAB 20 MG TAB PO SCH (09:00)
--- NOTE | 2018-10-29 09:35 | NUR ---
DISCONTINUED PARMAR CATHETER INTACT AT THIS TIME, TOLERATED WELL
--- NOTE | 2018-10-29 09:45 | NUR ---
DISCONTINUED A LINE, CATHETER INTACT, TOLERATED WELL
--- NOTE | 2018-10-29 09:55 | NUR ---
DISCONTINUED RT IJ CORDIS, CATHETER INTACT, APPLIED PRESSURE TO SITE, COVERED WITH 4X4 GAUZE, AND SECURED WITH OPSITE.
--- NOTE | 2018-10-29 10:30 | NUR ---
DISCONTINUED CHEST TUBE X3, CATHETERS INTACT. ASSISTED PER JOHAN NGUYEN, PETROLEUM GAUZES APPLIED TO SITE, TOLERATED WELL.
--- NOTE | 2018-10-29 11:25 | NUR ---
REPORT GIVEN TO CLAUDIA MARTIN RN. TRANSFERRED TO ROOM 232, PCCU, VIA BED.
--- NOTE | 2018-10-29 11:40 | NUR ---
Patient recieved from ICU to room 232. Patient alert, awake and oriented. Dressing to Left IJ clean dry and intact. Mid sternal incision dressing clean dry and intact. IV patent and flushes well to Right hand and right forearm. Patient reoriented to room. bed to lowest position. Call light placed within reach Addendum: 10/29/18 at 1454 by CLAUDIA MARTIN RN RN Denies chest pain or SOB, respirations even and unlabored. Patient having small loose frequent stools. SCD's placed on patient.
[2018-10-29] MEDS: METOPROLOL TARTRATE 25 MG TAB PO SCH ×2 (11:51→21:28)
[2018-10-29] MEDS: DEXTROSE 50%-WATER 50 ML DISP.SYRIN IV PRN (11:51)
[2018-10-29] MEDS ORDERED: ENOXAPARIN SODIUM 30 MG/0.3 ML SQ SCH (13:00)
--- NOTE | 2018-10-29 13:10 | NUR ---
Agatha notified of platelet count 62. Hold lovenox. Continue with SCD and DEMARCO fu.
[2018-10-29] MEDS: INSULIN GLARGINE 100 UNITS/ML 10 ML VIAL SQ SCH (21:00)
[2018-10-29] MEDS: ATORVASTATIN CALCIUM 20 MG TABLET PO SCH (21:28)
[2018-10-30] VITALS (7 sets, daily range): BP systolic 97–136; BP diastolic 38–58
[2018-10-30] MEDS: SODIUM CHLORIDE 0.9% 10 ML VIAL IVP SCH ×3 (00:15→16:15)
[2018-10-30 03:46] LABS: HEMATOCRIT 27.2 % (42-54); MEAN CORPUSCULAR HEMOGLOBIN 34.1 pg (27.0-33.0); MEAN CORPUSCULAR HGB CONC 33.6 g/dL (32.0-36.0); MEAN CORPUSCULAR VOLUME 101.3 fL (79-99); PLATELET COUNT (AUTO) 61 K/uL (130-400); RED BLOOD CELL COUNT(AUTO) 2.68 MIL/uL (4.50-6.20); RED CELL DISTRIBUTION WIDTH 14.8 % (11.0-15.5); WHITE BLOOD COUNT (AUTO) 9.8 K/uL (4.8-10.8)
[2018-10-30 03:58] LABS: ALBUMIN 2.6 g/dL (3.5-5.0); BILIRUBIN,TOTAL 0.3 mg/dL (0.2-1.0); CREATININE 6.6 mg/dL (0.5-1.5); MAGNESIUM 2.4 mg/dL (1.80-2.40); POTASSIUM 4.5 mmol/L (3.5-5.1); TOTAL PROTEIN, SERUM 5.6 g/dL (6.0-8.3)
--- NOTE | 2018-10-30 05:55 | NUR ---
Patient noted to have brown pasty stools.
[2018-10-30] MEDS ORDERED: ENOXAPARIN SODIUM 30 MG/0.3 ML SQ SCH (09:00)
[2018-10-30] MEDS: FAMOTIDINE/PF 20 MG/2 ML VIAL IV SCH (09:00)
[2018-10-30] MEDS: FOLIC ACID/VITAMIN B COMP W-C 1 MG CAP/TAB PO SCH (10:30)
--- NOTE | 2018-10-30 10:30 | NUR ---
AM ASSESSMENT PT LAYING IN BED, RESTING. FAMILY @ BEDSIDE. A/O X 3. NO SOB. NO DISTRESS NOTED. DENIES CHEST PAIN OR DISCOMFORT. DENIES INCISIONAL PAIN. TELE: SR 80s. DENIES N/V AND/OR DIARRHEA. TOLERATED CLEAR LIQUID, NO NAUSEA EXPERIENCED. DIET TO BE ADVANCED FOR LUNCH. HD TTS. HD THIS AM, 0.2L REMOVED. TOLERATED WELL. LT AV-FISTULA, (+) BRUIT/(+) THRILL. LT ARM PRECAUTIONS IN PLACE. STERNAL INCISION DSG DRY & INTACT. NO DRAINAGE NOTED. STERNAL PRECAUTIONS REINFORCED. UP W/ASSISTANCE. INSTRUCTED TO CALL FOR ASSISTANCE. CALL DIANN W/IN REACH.
[2018-10-30] MEDS: ASPIRIN 325MG EC TAB 325 MG TABLET.DR PO SCH (10:31)
[2018-10-30] MEDS: PANTOPRAZOLE SODIUM 40 MG TABLET.DR PO SCH (10:31)
[2018-10-30] MEDS: FOLIC ACID 1 MG TABLET PO SCH (10:31)
[2018-10-30] MEDS: LISINOPRIL 10 MG TABLET PO SCH (10:31)
[2018-10-30] MEDS ORDERED: EPOETIN ALFA 10,000 UNIT/ML VIAL SQ SCH (17:00)
[2018-10-30] MEDS ORDERED: PHARMACY COMMUNICATION MISC SCH (17:45)
[2018-10-30] MEDS: ATORVASTATIN CALCIUM 20 MG TABLET PO SCH (20:41)
[2018-10-30] MEDS: INSULIN GLARGINE 100 UNITS/ML 10 ML VIAL SQ SCH (20:47)
--- NOTE | 2018-10-31 00:03 | NUR ---
Pt. resting in bed quietly,sleeping well,respirations even and nonlabored.Easily arousable.BP 97/54mmHg .Pt. denies any discomfort he said he feels okay at this time.Call light placed within reach.
[2018-10-31] MEDS: SODIUM CHLORIDE 0.9% 10 ML VIAL IVP SCH ×3 (00:15→16:15)
[2018-10-31 04:20] LABS: HEMATOCRIT 25.2 % (42-54); MEAN CORPUSCULAR HEMOGLOBIN 34.6 pg (27.0-33.0); MEAN CORPUSCULAR HGB CONC 33.8 g/dL (32.0-36.0); MEAN CORPUSCULAR VOLUME 102.2 fL (79-99); PLATELET COUNT (AUTO) 61 K/uL (130-400); RED BLOOD CELL COUNT(AUTO) 2.47 MIL/uL (4.50-6.20); RED CELL DISTRIBUTION WIDTH 14.2 % (11.0-15.5); WHITE BLOOD COUNT (AUTO) 7.1 K/uL (4.8-10.8)
[2018-10-31 04:24] VITALS: BP 141/63
[2018-10-31 04:30] LABS: CREATININE 4.8 mg/dL (0.5-1.5); POTASSIUM 3.4 mmol/L (3.5-5.1)
[2018-10-31 07:29] VITALS: BP 156/59
[2018-10-31] MEDS ORDERED: METOPROLOL TARTRATE 25 MG TAB PO SCH (09:00)
[2018-10-31] MEDS: ASPIRIN 325MG EC TAB 325 MG TABLET.DR PO SCH (09:24)
[2018-10-31] MEDS: FOLIC ACID/VITAMIN B COMP W-C 1 MG CAP/TAB PO SCH (09:24)
[2018-10-31] MEDS: PANTOPRAZOLE SODIUM 40 MG TABLET.DR PO SCH (09:24)
[2018-10-31] MEDS: FOLIC ACID 1 MG TABLET PO SCH (09:24)
[2018-10-31] MEDS: LISINOPRIL 10 MG TABLET PO SCH (09:24)
[2018-10-31 11:38] VITALS: BP 136/57
--- NOTE | 2018-10-31 12:46 | NUR ---
RD Notification Pt tolerating 75gm CC, Heart Healthy diet with no report of GI distress and PO intake at 100%. Rec to add Dialysis diet modifier secondary to Hx of ESRD on HD. Pt with no complaints at time of visit. RD provided Mediterranean diet education and encouraged to notify as questions or concern arise. Pt LBM 10/30/18. Pt monitored labs: K 3.4, BUN 38, Cr 4.8, GFR 13, Glu 108, Ca 7.5, Alb 2.6. RD to continue to monitor. Please notify RD as additional nutrition concerns arise. Thank you. Addendum: 10/31/18 at [address] RD Amended: Links added.
--- NOTE | 2018-10-31 12:54 | NUR ---
Diet Education JOSE provided Mediterranean diet education. JOSE reviewed reference materials and handouts with Pt. Pt with desire to review reference materials. Pt with no questions at time of teaching. Pt verbalized understanding. JOSE encouraged to notify as questions and concerns arise. Addendum: 10/31/18 at [address] RD Amended: Links added.
[2018-10-31 15:49] VITALS: BP 141/58
--- NOTE | 2018-10-31 18:05 | NUR ---
DISCHARGE INSTRUCTIONS/ INFORMATION GIVEN TO PATIENT AND SPOUSE. TEACH BACK METHOD USED TO EDUCATE PATIENT ON DIET, ACTIVITY RESTRICTIONS, IS USE, PHYSICAL ACTIVITY, STERNAL PRECAUTIONS, NEW MEDICATIONS PRESCRIBED, WOUND CARE,AND F/U APPOINTMENTS. NEW MEDS WERE CALLED IN TO PATIENT'S PREFERRED PHARMACY, [facility] RAINEY-SPOKE WITH JANETH. PIV REMOVED. TIP INTACT. TELE REMOVED AND RETURNED. ALL BELONGINGS WERE PACKED INCLUDING IS MACHINE. PATIENT WAS SAFELY WHEELED TO PRIVATE VEHICLE BY LENA METZ.
== END 2018-10-31 18:30 | disposition home or self-care (01) | DRG 233 ==
LOC: DAH 05:42 → DAHIP 05:43 → 2AH 08:38 → 2CV 13:51 → 2BH 10-28 05:07 → 2AH 10-29 11:26
PROVIDERS: ADMIT Internal Medicine Nephrology; ATTEND Internal Medicine Nephrology
PROC: 021209W Bypass Coronary Artery, Three Arteries from Aorta with Autologous Venous Tissue, Open Approach (ICD-10-PCS; 2018-10-27)
PROC: 06BQ4ZZ Excision of Left Saphenous Vein, Percutaneous Endoscopic Approach (ICD-10-PCS; 2018-10-27)
PROC: B2151ZZ Fluoroscopy of Left Heart using Low Osmolar Contrast (ICD-10-PCS; 2018-10-27)
PROC: 02100Z9 Bypass Coronary Artery, One Artery from Left Internal Mammary, Open Approach (ICD-10-PCS; principal; 2018-10-27 13:29)
PROC: B2111ZZ Fluoroscopy of Multiple Coronary Arteries using Low Osmolar Contrast (ICD-10-PCS; 2018-10-27 13:29)
PROC: 4A023N7 Measurement of Cardiac Sampling and Pressure, Left Heart, Percutaneous Approach (ICD-10-PCS; 2018-10-27 13:29)
PROC: 5A1D70Z Performance of Urinary Filtration, Intermittent, Less than 6 Hours Per Day (ICD-10-PCS; 2018-10-28)
PROC: 5A1D70Z Performance of Urinary Filtration, Intermittent, Less than 6 Hours Per Day (ICD-10-PCS; 2018-10-30)
DX: I25.10 Atherosclerotic heart disease of native coronary artery without angina pectoris (principal); N18.6 End stage renal disease; I12.0 Hypertensive chronic kidney disease with stage 5 chronic kidney disease or end stage renal disease; D62 Acute posthemorrhagic anemia; D63.8 Anemia in other chronic diseases classified elsewhere; E11.22 Type 2 diabetes mellitus with diabetic chronic kidney disease; D69.59 Other secondary thrombocytopenia; R00.1 Bradycardia, unspecified; E11.21 Type 2 diabetes mellitus with diabetic nephropathy; E11.51 Type 2 diabetes mellitus with diabetic peripheral angiopathy without gangrene; E78.5 Hyperlipidemia, unspecified; Z99.2 Dependence on renal dialysis; Z79.82 Long term (current) use of aspirin; Z79.899 Other long term (current) drug therapy; Z87.891 Personal history of nicotine dependence
CPT/HCPCS: 36415; 71045; 80048; 80053; 80061; 80074; 81001; 82330; 82435; 82728; 82803; 82947; 82948; 83036; 83540; 83550; 83605; 83735; 83880; 84100; 84132; 84295; 85018; 85025; 85027; 85610; 85730; 86850; 86900; 86901; 86922; 90935; 93005; 93458; 94002; 94003; 94150; 97039; 99156; 99157; A4606; A7048; C1760; C1894; G0378; J0171; J0282; J0690; J0885; J1644; J1650; J1815; J2001; J2175; J2250; J2405; J2440; J2704; J2720; J3010; J3475; J3480; J3490; J7030; J7040; J7070; J7120; P9047; Q9967

== ENCOUNTER → 2019-10-21 | Outpatient (CLI) | payer OTHER | END | disposition home or self-care (01) | LOC: SHCH 09:53 | PROVIDERS: ATTEND Internal Medicine Cardiovascular Disease | DX: R01.1 Cardiac murmur, unspecified (principal); R09.89 Other specified symptoms and signs involving the circulatory and respiratory systems ==

== ENCOUNTER 2020-05-24 05:48 | Day surgery (SDC) | payer OTHER ==
[~2020-05-24] VITALS: Ht 160 cm; Wt 55.3 kg
[~2020-05-24 05:48] MED LIST changes: +ASPI-1012 PO; -LISI10TA7 PO; +MULT-1203 PO; -OMEP-50 PO; +OMEP20CA12 PO; -SIMV10TA6 PO
[2020-05-24 06:00] VITALS: BP 168/63
[2020-05-24] MEDS ORDERED: SODIUM CHLORIDE 0.9% 1000ML 1,000 ML IV ONE (06:13)
[2020-05-24 06:51] LABS: CREATININE 4.2 mg/dL (0.5-1.5); POTASSIUM 3.8 mmol/L (3.5-5.1)
[2020-05-24] MEDS ORDERED: METO50TA18 PO (07:09)
[2020-05-24] MEDS ORDERED: LISI10TA24 PO (07:09)
[2020-05-24] MEDS ORDERED: ATOR40TA71 PO (07:09)
[2020-05-24] MEDS ORDERED: PROPOFOL 10 MG/ML 20ML VIAL IV ONE ×2 (07:33→07:41)
[2020-05-24] MEDS ORDERED: LIDOCAINE HCL 1% 20 ML VIAL ONE (07:33)
[2020-05-24 07:57] VITALS: BP 96/71
[2020-05-24 08:02] VITALS: BP 101/72
[2020-05-24 08:07] VITALS: BP 106/74
[2020-05-24 08:12] VITALS: BP 124/63
== END 2020-05-24 08:20 | disposition home or self-care (01) ==
LOC: DAH 05:48 → ENDO 05:48
PROVIDERS: ATTEND Internal Medicine Gastroenterology
DX: D50.0 Iron deficiency anemia secondary to blood loss (chronic) (principal); Z20.822 Contact with and (suspected) exposure to COVID-19; K29.50 Unspecified chronic gastritis without bleeding; K62.89 Other specified diseases of anus and rectum; K31.89 Other diseases of stomach and duodenum; E11.22 Type 2 diabetes mellitus with diabetic chronic kidney disease; E78.49 Other hyperlipidemia; I13.2 Hypertensive heart and chronic kidney disease with heart failure and with stage 5 chronic kidney disease, or end stage renal disease; I50.9 Heart failure, unspecified; N18.6 End stage renal disease; Z99.2 Dependence on renal dialysis; Z98.890 Other specified postprocedural states; Z87.891 Personal history of nicotine dependence; Z79.899 Other long term (current) drug therapy
CPT/HCPCS: 36415; 43239; 45378; 80048; 82948; 88305; 88342; 93005; A4215 ×2; A4221; A4222; A4223; A4606; A4620; A4657; A4663; C9803; J2704 ×2; J7030; U0003

== ENCOUNTER → 2020-10-18 | Outpatient (CLI) | payer OTHER ==
[~2020-10-18] MED LIST changes: +ATOR40TA71 PO; +LISI10TA24 PO; +METO50TA18 PO
== END | disposition home or self-care (01) ==
LOC: SHCH 13:16
PROVIDERS: ATTEND Internal Medicine Cardiovascular Disease
DX: R09.89 Other specified symptoms and signs involving the circulatory and respiratory systems (principal)
CPT/HCPCS: 93880

== ENCOUNTER → 2022-07-31 | Outpatient (CLI) | payer OTHER ==
[~2022-07-31] MED LIST changes: +REGADENOSON 0.4 MG/5 ML PF SYG IVP ONE
== END | disposition home or self-care (01) ==
LOC: SHCH 09:00
PROVIDERS: ATTEND Internal Medicine Cardiovascular Disease
DX: I25.10 Atherosclerotic heart disease of native coronary artery without angina pectoris (principal); I12.0 Hypertensive chronic kidney disease with stage 5 chronic kidney disease or end stage renal disease; E11.22 Type 2 diabetes mellitus with diabetic chronic kidney disease; N18.6 End stage renal disease; E78.5 Hyperlipidemia, unspecified; Z95.1 Presence of aortocoronary bypass graft; Z99.2 Dependence on renal dialysis; Z79.899 Other long term (current) drug therapy
CPT/HCPCS: 78452; 96374; 93017; J2785; A9500 ×2

== ENCOUNTER → 2023-04-16 | Outpatient (CLI) | payer OTHER ==
[~2023-04-16] MED LIST changes: -REGADENOSON 0.4 MG/5 ML PF SYG IVP ONE
== END | disposition home or self-care (01) ==
LOC: SHCH 08:50
PROVIDERS: ATTEND Internal Medicine Cardiovascular Disease
DX: I35.0 Nonrheumatic aortic (valve) stenosis (principal); I27.20 Pulmonary hypertension, unspecified; I25.10 Atherosclerotic heart disease of native coronary artery without angina pectoris
CPT/HCPCS: 93306